=== PATIENT | female | born 1990 | race Caucasian/White ===

== ENCOUNTER 2017-02-08 11:56 | Outpatient (CLI) | payer OTHER ==
[~2017-02-08] VITALS: Ht 160 cm; Wt 112.6 kg
[~2017-02-08 11:56] MED LIST: FERR27TA; PREN-15
[2017-02-08 12:30] VITALS: BP 112/61; PULSE 83; RESP 18; Ht 160 cm; Wt 112.6 kg
[2017-02-08 13:00] LABS: ADD SCAN DIFF NO
[2017-02-08 13:07] LABS: BASOPHILS % 0.1 % (0.0-2.0); EOSINOPHILS # 0.1 10^3/ul (0.0-0.5); EOSINOPHILS % 0.6 % (0.0-7.0); HEMATOCRIT 36.8 % (37.0-47.0); HEMOGLOBIN 11.6 g/dl (12.0-16.0); LYMPHOCYTES # 2.2 10^3/ul (0.8-2.9); LYMPHOCYTES % 15.2 % (15.0-51.0); MEAN CORPUSCULAR HEMOGLOBIN 26.4 pg (29.0-33.0); MEAN CORPUSCULAR HGB CONC 31.5 g/dl (32.0-37.0); MEAN CORPUSCULAR VOLUME 83.8 fl (82.0-101.0); MEAN PLATELET VOLUME 11.5 fl (7.4-10.4); MONOCYTE # 0.9 10^3/ul (0.3-0.9); NEUTROPHIL # 11.1 10^3/ul (1.6-7.5); NEUTROPHILS % 77.8 % (39.0-77.0); PLATELET COUNT 283 10^3/UL (140-415); RED BLOOD COUNT 4.39 10^6/ul (4.20-5.40); RED CELL DISTRIBUTION WIDTH 14.1 % (11.5-14.5); WHITE BLOOD COUNT 14.3 10^3/ul (4.8-10.8)
[2017-02-08 13:10] LABS: ALBUMIN 3.2 g/dl (3.3-4.9); POTASSIUM 4.1 mmol/L (3.5-5.1)
[2017-02-08 13:12] LABS: CREATININE 0.6 mg/dl (0.44-1.00)
[2017-02-08 13:13] LABS: ALBUMIN/GLOBULIN RATIO 0.8; BILIRUBIN,INDIRECT 0.1 mg/dl (0-1.1); BILIRUBIN,TOTAL 0.1 mg/dl (0.2-1.3); TOTAL PROTEIN 7.2 g/dl (6.1-8.1); URIC ACID 5.4 mg/dl (3.1-7.9)
[2017-02-08 13:14] LABS: CALCIUM 9.2 mg/dl (8.4-10.2)
[2017-02-08 13:26] LABS: ADD UMIC YES; URINE BILIRUBIN (Dip) NEGATIVE (NEGATIVE); URINE BLOOD (Dip) NEGATIVE (NEGATIVE); URINE COLOR LT. YELLOW (YELLOW); URINE GLUCOSE (Dip) NEGATIVE (NEGATIVE); URINE KETONES (Dip) NEGATIVE (NEGATIVE); URINE LEUKOCYTE ESTERASE (Dip) 2+ (NEGATIVE); URINE NITRITE (Dip) NEGATIVE (NEGATIVE); URINE TOTAL PROTEIN (Dip) NEGATIVE (NEGATIVE); URINE UROBILINOGEN (Dip) 0.2 E.U./dL (0.1-1.0)
--- NOTE | 2017-02-08 13:28 | RADRPT ---
PROCEDURE: OB ultrasound for biophysical profile CLINICAL INDICATION: Hypertension TECHNIQUE: Multiple sonographic images of the pelvis were obtained. Transabdominal views of the g ravid uterus are available for review. The images were reviewed on a PACS workstation. COMPARISON: None FINDINGS: breathing movement = 2/2 tone = 2/2 motion = 2/2 ROBBIE = 2/2 ROBBIE = 14.7 cm Single live intrauterine with cardiac activity of 125 bpm. position is cephal ic. The placenta is posterior. IMPRESSION: 1. Single live intrauterine gestation. 2. Biophysical profile = 8. 3. ROBBIE = 14.7 cm. RPTAT: HH .Alexandra Mccann MD, MD Date Time Electronically viewed and signed by .Alexandra Mccann MD, on 02/08/2017 13:27 .G/
[2017-02-08 13:55] LABS: SQUAMOUS EPITHELIAL CELL,UR MODERATE; URINE RBCS NONE SEEN /HPF (0)
--- NOTE | 2017-02-08 14:54 | CONS ---
Date/Time of Note Date/Time of Note DATE: 02/08/17 TIME: 14:45 Consultation Date/Type/Reason Admit Date/Time February 08, 2017 OB triage consult Hx of Present Illness This patient is a 26 years old 3 para 2 living 2 who had both of her deliveries by section Her estimated date of confinement is February 25, 2017 which makes her today 37 weeks and 4 days She came to OB triage due to elevated blood pressure in the clinic On general exam she is a well-developed well-nourished lady in no acute She denies any headache blurry vision epigastric pain Her vital signs were normal the blood pressure and several occasion was around 112/61 and again 126/65 and 111/58 . her pulse rate 83 respiration 18 and temperature 91.1 Constitutional: No chills, No diaphoresis, No disoriented, No febrile, No improved, No no complaints, No other, No poor po, No requiring IVF, No requiring O2 Eyes: No discharge, No no complaints, No other, No pain, No redness, No visual change ENT: No bleeding, No congestion, No discharge, No dysphagia, No no complaints, No other, No pain, No sore throat Respiratory: No cough, No no complaints, No other, No pain, No pleuritic pain, No shortness of breath, No sputum, No wheezing Cardiovascular: No chest pain, No edema, No lightheadedness, No no complaints, No orthopenea, No other, No palpitations, No paroxysmal nocturnal dyspnea Genitourinary: other (On pelvic examination her cervix was closed thick and -4 no bleeding no excessive discharge or tenderness), No bleeding, No discharge, No dysuria, No flank pain, No hematuria, No no complaints Musculoskeletal: no complaints, No back pain, No bone/joint pain, No neck pain, No other, No restricted range of motion, No swelling Skin: No bruising, No erythema, No laceration, No no complaints, No other, No pruritis, No rash, No skin lesions Neurologic: No confusion, No dizziness, No focal-weakness, No headache, No no complaints, No other, No seizure, No syncope Endocrine: No dry skin, No no complaints, No other, No polydypsia, No polyuria , No temp intolerance Psychological: No anxiety, No confusion, No depression, No nl mood/affect, No no complaints, No other, No suicidal Immunologic: No immunodeficiency, No no complaints, No other, No pruritis, No rhinitis, No urticaria Additional Comments On the laboratory studies except for 2+ leuco esterase and WBC of 5-10 , the rest of the test on urine was negative her CBC was basically normal except for WBC of 14.3 and hemoglobin 11.6 hematocrit 36.8 , differential count were basically her electrolyte PIH lab liver function tests were all within normal limits Ultrasound study was performed the report was a single live intrauterine with cardiac activity 125 bpm position was cephalic, placenta was posterior. Her biophysical profile was reported 05/31 with ROBBIE of 14.7 cm. W With these finding I ordered a urine culture to be performed and Dr. Parisi recommended to start her on antibiotic. So an order to was given to collect clean-catch urine for culture. She was also placed on Macrobid 100 mg twice daily for 10 days End of dictation thank you Laboratory Tests Test 02/08/17 12:45 02/08/17 13:05 White Blood Count 14.310^3/ul Red Blood Count 4.3910^6/ul Hemoglobin 11.6g/dl Hematocrit 36.8% Mean Corpuscular Volume 83.8fl Mean Corpuscular Hemoglobin 26.4pg Mean Corpuscular Hemoglobin Concent 31.5g/dl Red Cell Distribution Width 14.1% Platelet Count 76935^3/UL Mean Platelet Volume 11.5fl Neutrophils % 77.8% Lymphocytes % 15.2% Monocytes % 6.0% Eosinophils % 0.6% Basophils % 0.1% Nucleated Red Blood Cells % 0.0/100WBC Neutrophils # 11.110^3/ul Lymphocytes # 2.210^3/ul Monocytes # 0.910^3/ul Eosinophils # 0.110^3/ul Basophils # 0.010^3/ul Nucleated Red Blood Cells # 0.010^3/ul Sodium Level 135mmol/L Potassium Level 4.1mmol/L Chloride Level 102mmol/L Carbon Dioxide Level 23mmol/L Anion Gap 14 Blood Urea Nitrogen 7mg/dl Creatinine 0.60mg/dl Glucose Level 76mg/dl Uric Acid 5.4mg/dl Calcium Level 9.2mg/dl Total Bilirubin 0.1mg/dl Direct Bilirubin 0.00mg/dl Indirect Bilirubin 0.1mg/dl Aspartate Amino Transf (AST/SGOT) 15IU/L Alanine Aminotransferase (ALT/SGPT) 24IU/L Alkaline Phosphatase 191IU/L Total Protein 7.2g/dl Albumin 3.2g/dl Globulin 4.00g/dl Albumin/Globulin Ratio 0.80 Urine Color LT. YELLOW Urine Clarity CLEAR Urine pH 6.5 Urine Specific Lopez <=1.005 Urine Ketones NEGATIVE Urine Nitrite NEGATIVE Urine Bilirubin NEGATIVE Urine Urobilinogen 0.2 E.U./dL Urine Leukocyte Esterase 2+ Urine Microscopic RBC NONE SEEN/HPF Urine Microscopic WBC 5-10/HPF Urine Squamous Epithelial Cells MODERATE Urine Hemoglobin NEGATIVE Urine Glucose NEGATIVE% Urine Total Protein NEGATIVE Social History Smoking Status: Never smoker Exam/Review of Systems Vital Signs Vitals Vital Signs Date Time Temp Pulse Resp B/P Pulse Ox O2 Delivery O2 Flow Rate FiO2 02/08/17 12:30 98.1 83 18 112/61 Room Air Results Result Diagram: 02/08/17 1245 02/08/17 1245 Results 24 hrs Laboratory Tests Test 02/08/17 12:45 02/08/17 13:05 White Blood Count 14.3 H Red Blood Count 4.39 Hemoglobin 11.6 L Hematocrit 36.8 L Mean Corpuscular Volume 83.8 Mean Corpuscular Hemoglobin 26.4 L Mean Corpuscular Hemoglobin Concent 31.5 L Red Cell Distribution Width 14.1 Platelet Count 283 Mean Platelet Volume 11.5 H Neutrophils % 77.8 H Lymphocytes % 15.2 Monocytes % 6.0 Eosinophils % 0.6 Basophils % 0.1 Nucleated Red Blood Cells % 0.0 Neutrophils # 11.1 H Lymphocytes # 2.2 Monocytes # 0.9 Eosinophils # 0.1 Basophils # 0.0 Nucleated Red Blood Cells # 0.0 Sodium Level 135 Potassium Level 4.1 Chloride Level 102 Carbon Dioxide Level 23 Anion Gap 14 Blood Urea Nitrogen 7 Creatinine 0.60 Glucose Level 76 Uric Acid 5.4 Calcium Level 9.2 Total Bilirubin 0.1 L Direct Bilirubin 0.00 Indirect Bilirubin 0.1 Aspartate Amino Transf (AST/SGOT) 15 Alanine Aminotransferase (ALT/SGPT) 24 Alkaline Phosphatase 191 H Total Protein 7.2 Albumin 3.2 L Globulin 4.00 H Albumin/Globulin Ratio 0.80 Urine Color LT. YELLOW Urine Clarity CLEAR Urine pH 6.5 Urine Specific Lopez <=1.005 L Urine Ketones NEGATIVE Urine Nitrite NEGATIVE Urine Bilirubin NEGATIVE Urine Urobilinogen 0.2 E.U./dL Urine Leukocyte Esterase 2+ H Urine Microscopic RBC NONE SEEN Urine Microscopic WBC 5-10 Urine Squamous Epithelial Cells MODERATE Urine Hemoglobin NEGATIVE Urine Glucose NEGATIVE Urine Total Protein NEGATIVE MITUL ARTHUR MD Feb 08, 2017 14:54
--- NOTE | 2017-02-08 15:05 | TRIAGE ---
OB Triage Datetime Report Generated by CPN: 02/08/2017 15:05 Datetime: 02/08/2017 14:10 Labor Evaluation Frequency: 1-3 Monitor Mode: External Duration (sec)2399: 40-100 Quality: Mild Pattern: Normal: <= 5 Contractions in 10 Minutes Resting Tone Chama: Relaxed Heart Rate FHR Baseline Rate: 135 Monitor Mode: External US FHR Baseline Changes: No Baseline Change Variability: Moderate 6-25 bpm Accelerations: 15X15 Decelerations: None Category: Category I Pain Assessment Pain Presence: None/Denies Pain Assessment Comments: Pt denies pain or pressure with contractions Datetime: 02/08/2017 14:04 Vaginal Exam Dilatation (cms): 0.0 Effacement (%): 0 Station: -4 Exam By: Jennifer RN Datetime: 02/08/2017 13:09 Labor Evaluation Frequency: OCC Monitor Mode: External Quality: Moderate Pattern: Normal: <= 5 Contractions in 10 Minutes Resting Tone Chama: Relaxed Contraction Comments: Irritability noted Heart Rate FHR Baseline Rate: 130 Monitor Mode: External US FHR Baseline Changes: No Baseline Change Variability: Moderate 6-25 bpm Accelerations: 15X15 Decelerations: None Category: Category I Pain Assessment Pain Presence: None/Denies Pain Assessment Comments: Pt denies feeling pain or pressure with contractions Datetime: 02/08/2017 12:49 Monitor Mode: External Resting Tone Chama: Relaxed Heart Rate FHR Baseline Rate: 125 Monitor Mode: External US FHR Baseline Changes: No Baseline Change Variability: Moderate 6-25 bpm Accelerations: 15X15 Decelerations: None Category: Category I Datetime: 02/08/2017 12:27 Assessment Type: Triage Maternal Assessment Level of Consciousness: Fully Conscious DTR's/Clonus: DTRs 2+; No Clonus Headache: Denies Blurred Vision: No Respiratory Effort: Unlabored; Regular Rhythm; Equal Expansion Breath Sounds, Left: Clear and Equal Breath Sounds, Right: Clear and Equal Nausea/Vomiting: Denies RUQ Epigastric Pain: Denies Lower Extremities Edema: None Degree: None Upper Extremities Edema: None Degree: None Facial Edema: None Fall Risk Assessment History of Falling: (0) No Secondary Diagnosis: (0) No Ambulatory Aid: (0) Bedrest/Nurse Assist IV Therapy: (0) No Gait: (0) Normal/Bedrest/Immobile Mental Status: (0) Oriented to Own Ability Fall Score: 0 Fall Risk Score Definition: No Risk: No action required Datetime: 02/08/2017 12:26 Time of Arrival: 02/08/2017 11:56 EGA: 37.4 Arrived By: Ambulatory Arrived From: Dr. Pineda Chief Complaint: pt sent from clinic for eval. of HBP Movement: Present Contractions: Denies/Absent Rupture of Membranes: Denies Vaginal Bleeding: None Vaginal Discharge: Denies Recent Sexual Intercouse: Denies Abdominal Trauma: Not Applicable Patient Complaints: None Time Provider Notified: 02/08/2017 12:35 Provider Notified: [facility], [facility] Initial Plan: NST/BPP/PIH PANEL Datetime: 02/08/2017 12:24 Monitor Mode: External Monitor Mode: External US Datetime: 02/08/2017 12:18 Stage of : OB Triage
== END 2017-02-08 14:50 | disposition home or self-care (01) ==
LOC: OBT 11:56 → L-D 11:57 → OBT 14:50
PROVIDERS: ATTEND Obstetrics & Gynecology
DX: O26.893 Other specified pregnancy related conditions, third trimester (principal); R03.0 Elevated blood-pressure reading, without diagnosis of hypertension; Z3A.37 37 weeks gestation of pregnancy
CPT/HCPCS: 36415; 76818; 80053; 81001; 84560; 85025; 87086; Z7500; 81003; G0463

== ENCOUNTER 2017-02-18 05:19 | Inpatient (IN) | payer OTHER ==
[~2017-02-18] VITALS: Ht 160 cm; Wt 112.7 kg
[2017-02-18] VITALS (9 sets, daily range): BP systolic 116–138; BP diastolic 59–83; PULSE 57–83; RESP 16–19; Ht 160 cm; Wt 112.7 kg
[2017-02-18] MEDS ORDERED: NITR100C73 PO (05:31)
[2017-02-18] MEDS ORDERED: METHYLERGONOVINE 0.2 MG INJ IM PRN ×2 (06:00→12:30)
[2017-02-18] MEDS ORDERED: OXYTOCIN 30 UNITS/LR 500 ML IV PRN ×2 (06:00→12:30)
[2017-02-18] MEDS ORDERED: CARBOPROST 250 MCG INJ IM PRN ×2 (06:00→12:30)
[2017-02-18] MEDS ORDERED: MISOPROSTOL 200 MCG TAB PR PRN ×2 (06:00→12:30)
[2017-02-18] MEDS ORDERED: OXYTOCIN 30 UNITS/LR 500 ML IV SCH (06:00)
[2017-02-18] MEDS ORDERED: CLINDAMYCIN 900 MG/D5W (PMX) 50 ML IV SCH (06:00)
[2017-02-18 06:07] LABS: ADD SCAN DIFF NO
[2017-02-18 06:24] LABS: BASOPHILS % 0.1 % (0.0-2.0); EOSINOPHILS # 0.1 10^3/ul (0.0-0.5); EOSINOPHILS % 0.4 % (0.0-7.0); HEMATOCRIT 36.8 % (37.0-47.0); HEMOGLOBIN 11.9 g/dl (12.0-16.0); LYMPHOCYTES # 2.3 10^3/ul (0.8-2.9); LYMPHOCYTES % 16.9 % (15.0-51.0); MEAN CORPUSCULAR HEMOGLOBIN 26.9 pg (29.0-33.0); MEAN CORPUSCULAR HGB CONC 32.3 g/dl (32.0-37.0); MEAN CORPUSCULAR VOLUME 83.1 fl (82.0-101.0); MEAN PLATELET VOLUME 11.9 fl (7.4-10.4); MONOCYTE # 0.8 10^3/ul (0.3-0.9); MONOCYTES % 5.7 % (0.0-11.0); NEUTROPHIL # 10.2 10^3/ul (1.6-7.5); NEUTROPHILS % 76.5 % (39.0-77.0); PLATELET COUNT 276 10^3/UL (140-415); RED BLOOD COUNT 4.43 10^6/ul (4.20-5.40); RED CELL DISTRIBUTION WIDTH 14.7 % (11.5-14.5); WHITE BLOOD COUNT 13.4 10^3/ul (4.8-10.8)
[2017-02-18 06:34] LABS: INR 0.98
[2017-02-18] MEDS ORDERED: LACTATED RINGER'S 1,000 ML IV SCH (06:52)
[2017-02-18] MEDS ORDERED: ONDANSETRON 4 MG INJ IV STA (07:26)
[2017-02-18] MEDS ORDERED: CITRIC ACID/NA CITRATE 30 ML CUP ONE (07:28)
[2017-02-18] MEDS ORDERED: ONDANSETRON 4 MG INJ ONE ×2 (07:29→07:32)
[2017-02-18] MEDS ORDERED: CITRIC ACID/SODIUM CITRATE 15 ML CUP PO ONE (07:30)
[2017-02-18] MEDS ORDERED: OXYTOCIN 10 UNIT INJ ONE ×3 (07:32→08:19)
[2017-02-18] MEDS ORDERED: KETOROLAC 30 MG INJ ONE (07:32)
[2017-02-18] MEDS ORDERED: PHENYLephrine (100 MCG/ML) 5ML SYG ONE ×2 (07:32→08:04)
[2017-02-18] MEDS ORDERED: METOCLOPRAMIDE 10 MG INJ ONE (07:32)
[2017-02-18] MEDS ORDERED: morphine SULFATE/PF (10 MG/10 ML) INJ ONE (07:32)
[2017-02-18] MEDS ORDERED: DEXAMETHASONE 4 MG/ML 1 ML INJ ONE (07:32)
[2017-02-18] MEDS ORDERED: NALBUPHINE HCL (10 MG/1 ML) INJ IV PRN (08:30)
[2017-02-18] MEDS ORDERED: NALOXONE (0.4 MG/ML) INJ IV PRN (08:30)
[2017-02-18] MEDS ORDERED: CITRIC ACID/NA CITRATE 30 ML CUP PO ONE (08:30)
[2017-02-18] MEDS ORDERED: morphine 2 MG INJ IV PRN (08:30)
[2017-02-18] MEDS ORDERED: ONDANSETRON 4 MG INJ IV ONE (08:30)
[2017-02-18] MEDS ORDERED: morphine 4 MG/ML VIAL IV PRN (08:30)
[2017-02-18] MEDS ORDERED: ACETAMINOPHEN 500 MG TAB PO PRN (08:30)
[2017-02-18] MEDS ORDERED: DIPHENHYDRAMINE 50 MG INJ IV PRN (08:30)
[2017-02-18] MEDS ORDERED: HYDROCODONE/APAP (5/325) TAB PO PRN (08:30)
[2017-02-18] MEDS ORDERED: HYDROmorphONE 1 MG/ML SYG IV PRN ×2 (08:30)
[2017-02-18] MEDS ORDERED: ONDANSETRON 4 MG INJ IV PRN (08:30)
--- NOTE | 2017-02-18 09:04 | HP ---
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12 history of 2 previous pregnancies with section denies hospitalization for any other surgical or medical condition Allergies denies allergy to any known medication Social habit denies smoking or drink Family history unremarkable Review of system within normal Physical examination 5 feet 3 248 pounds temperature 98 pulse 72 respiration 18 blood pressure 121/64 Head ears nose and throat negative Neck supple no thyromegaly Lungs clear to P&A Heart normal sinus rhythm no murmur Abdomen fundal height 37 cm from symphysis pubis to the height of the fundus heart rate category 1 Pelvic examination deferred Extremities no edema no varicosities Impression intrauterine at 39 weeks gestation history of 2 previous section. Patient was counseled regarding the complication of the surgery including bowel bladder injury infection hemorrhage and hematoma and she would like to proceed with the operation. Past Family/Social History * Past Medical, Surgical, Family and Obstetric Histories reviewed from chart. OB Admission Exam Vital Signs Vital Signs Vital Signs Date Time Temp Pulse Resp B/P Pulse Ox O2 Delivery O2 Flow Rate FiO2 02/18/17 06:51 98.0 83 18 123/73 Room Air Physical Exam HEENT: WNL Heart: Rhythm Normal Lungs: Clear, Equal Abdomen: WNL Extremities: Normal Reflexes: Normal Effacement: 0% Membranes: Intact Heart Rate: 130's Accelerations: Accelerations Present Decelerations: No Decelerations Last 72 hours Lab Results CBC & BMP 02/18/17 05:55 OB Assessment/Plan Reason for admission: other (Repeat section for the third time) Plan: Other (Repeat section for the third time) ANN CATALAN MD Feb 18, 2017 09:03
--- NOTE | 2017-02-18 10:23 | OPR ---
DATE OF OPERATION: 02/18/2017 PREOPERATIVE DIAGNOSES: 1. Intrauterine at 39 weeks' gestation. 2. History of 2 previous sections. POSTOPERATIVE DIAGNOSES 1. Intrauterine at 39 weeks' gestation. 2. History of 2 previous sections. ANESTHESIA: Spinal. ANESTHESIOLOGIST: Jessica Prescott MD PROCEDURE: Repeat transverse low cervical section. SURGEON: Ann Parisi MD ICE CREAM SCOOPER: Emerson Cutler MD ANESTHESIA: Spinal. ANESTHESIOLOGISTS: Tim Prescott MD FINDINGS: Live baby girl, Apgars 9 and 9. DETAILS OF THE PROCEDURE: Under satisfactory spinal anesthesia, the patient was prepped and draped and placed in supine position, tilted to the left. Pfannenstiel incision was made, carried through the subcutaneous tissue. Bleeders brought under control with electrocautery. Fascia incised to the length of the incision. Rectus muscle divided in midline. Peritoneum exposed, entered through a t ransverse incision. Exploration of abdomen. Gravid uterus with normal appearing tubes and ovaries and extremely thinned out lower segment of the uterus and presence of a window approximately 4 x 4 c m. Bladder flap was developed. Transverse incision was made in the lower segment of the uterus. A mniotic sac ruptured. Clear amniotic fluid noted. Live baby girl was delivered from unengaged vert ex with a nuchal cord tight around the baby's neck x3 times. Nasal oropharyngeal suction was perfor med. Cord clamped after stop pulsation. The patient received 20 units of Pitocin. Placenta delive red manually intact. Uterine cavity cleaned with wet sponge and drainage established. Uterus close d in 2 layers using Monocryl #1 in continuous fashion. Peritoneal cavity irrigated with warm saline . Sponge, needle and instrument reported to be correct. Abdominal peritoneum closed with 2-0 chrom ic catgut continuously. Rectus muscle approximated with two interrupted 2-0 chromic catgut. Fascia closed with #1 PDS in a continuous fashion. Subcutaneous tissue approximated with 2-0 chromic catg ut and the skin closed with taye. Estimated blood loss 600 mL. Urine bag contained 200 mL of cl ear urine. Patient tolerated procedure well, transferred to recovery room in a good condition. Dictated By: ANN PARISI MD HF/NTS Conf#: [id number] DID#: [id number] CC: EMERSON CUTLER MD;*[facility]*
[2017-02-18] MEDS ORDERED: LANOLIN 7 GM TUBE TOP PRN (12:30)
[2017-02-18] MEDS ORDERED: ACETAMINOPHEN/CODEINE #3 TAB PO PRN ×2 (12:30)
[2017-02-18] MEDS ORDERED: CEFAZOLIN 1 GM/50 ML (PMX) 50 ML IVPB SCH (12:30)
[2017-02-18] MEDS ORDERED: OXYCODONE/ACETAMINOPHEN (5/325) TAB PO PRN ×2 (12:30)
[2017-02-18] MEDS: OXYTOCIN 30 UNITS/LR 500 ML IV SCH ×4 (14:38→23:54)
[2017-02-18] MEDS ORDERED: CLINDAMYCIN 900 MG/D5W (PMX) 50 ML IVPB SCH (15:30)
[2017-02-18] MEDS: KETOROLAC 30 MG INJ IV PRN (20:10)
[2017-02-18] MEDS: SENNA/DOCUSATE NA (8.6MG/50MG) TAB PO SCH (20:10)
[2017-02-19] VITALS: BP 132/80; PULSE 71; RESP 18
[2017-02-19] MEDS ORDERED: LACTATED RINGER'S 1,000 ML IV ONE (03:30)
[2017-02-19] MEDS: KETOROLAC 30 MG INJ IV PRN (03:32)
[2017-02-19 03:59] VITALS: BP 113/73; PULSE 71; RESP 19
[2017-02-19] MEDS: OXYTOCIN 30 UNITS/LR 500 ML IV SCH ×3 (04:27→12:08)
[2017-02-19 07:36] LABS: ADD SCAN DIFF NO
[2017-02-19 07:39] LABS: BASOPHILS % 0.2 % (0.0-2.0); EOSINOPHILS % 0.3 % (0.0-7.0); HEMATOCRIT 27.6 % (37.0-47.0); HEMOGLOBIN 9.2 g/dl (12.0-16.0); LYMPHOCYTES # 2.9 10^3/ul (0.8-2.9); LYMPHOCYTES % 19.1 % (15.0-51.0); MEAN CORPUSCULAR HEMOGLOBIN 27.5 pg (29.0-33.0); MEAN CORPUSCULAR HGB CONC 33.3 g/dl (32.0-37.0); MEAN CORPUSCULAR VOLUME 82.4 fl (82.0-101.0); MEAN PLATELET VOLUME 11.7 fl (7.4-10.4); MONOCYTES % 6.8 % (0.0-11.0); NEUTROPHIL # 11.3 10^3/ul (1.6-7.5); NEUTROPHILS % 73.2 % (39.0-77.0); PLATELET COUNT 212 10^3/UL (140-415); RED BLOOD COUNT 3.35 10^6/ul (4.20-5.40); RED CELL DISTRIBUTION WIDTH 14.5 % (11.5-14.5); WHITE BLOOD COUNT 15.4 10^3/ul (4.8-10.8)
[2017-02-19 08:15] VITALS: BP 102/54; PULSE 60; RESP 17
[2017-02-19] MEDS: SENNA/DOCUSATE NA (8.6MG/50MG) TAB PO SCH ×2 (09:25→21:20)
--- NOTE | 2017-02-19 10:04 | PN ---
Date/Time of Note Date/Time of Note DATE: 02/19/17 TIME: 10:03 OB Subjective Subjective Subjective Post day 1 Afebrile vital signs stable abdomen soft mildly distended bowel sounds present lochia moderate incision dry extremity normal ambulation recommended diet advanced as tolerated Laboratory Tests Test 02/19/17 06:50 White Blood Count 15.410^3/ul Red Blood Count 3.3510^6/ul Hemoglobin 9.2g/dl Hematocrit 27.6% Mean Corpuscular Volume 82.4fl Mean Corpuscular Hemoglobin 27.5pg Mean Corpuscular Hemoglobin Concent 33.3g/dl Red Cell Distribution Width 14.5% Platelet Count 18977^3/UL Mean Platelet Volume 11.7fl Neutrophils % 73.2% Lymphocytes % 19.1% Monocytes % 6.8% Eosinophils % 0.3% Basophils % 0.2% Nucleated Red Blood Cells % 0.0/100WBC Neutrophils # 11.310^3/ul Lymphocytes # 2.910^3/ul Monocytes # 1.010^3/ul Eosinophils # 0.010^3/ul Basophils # 0.010^3/ul Nucleated Red Blood Cells # 0.010^3/ul Current Medications Medications (Trade) Dose Ordered Sig/Billy Route PRN Reason Start Time Stop Time Status Last Admin Dose Admin Clindamycin HCl/ Dextrose 50 ml @ 50 mls/hr ONCE IV 02/18/17 06:00 02/18/17 12:30 DC Oxytocin/Lactated Ringer's 500 ml @ 125 mls/hr ONCE IV 02/18/17 06:00 02/18/17 12:30 DC Oxytocin/Lactated Ringer's 500 ml @ 0 mls/hr ONCE PRN IV For Hemorrhage Management 02/18/17 06:00 02/18/17 12:30 DC Methylergonovine Maleate (Methergine) 0.2 mg ONCE PRN IM VAGINAL BLEEDING 02/18/17 06:00 02/18/17 12:30 DC Carboprost Tromethamine (Hemabate) 250 mcg ONCE PRN IM VAGINAL BLEEDING 02/18/17 06:00 Misoprostol 1000 mcg 1,000 mcg ONCE PRN ND VAGINAL BLEEDING 02/18/17 06:00 02/18/17 12:30 DC Lactated Ringer's (Lr) 1,000 ml @ 125 mls/hr Q8H IV 02/18/17 06:52 02/18/17 12:30 DC 02/18/17 07:12 Citric Acid/ Sodium Citrate (Bicitra) 30 ml ONCE ONCE PO 02/18/17 07:30 02/18/17 07:31 DC Ondansetron HCl (Zofran Inj) 4 mg ONCE STAT IV 02/18/17 07:26 02/18/17 07:31 DC 02/18/17 09:46 Citric Acid/ Sodium Citrate (Bicitra) 30 ml STK-MED ONCE .ROUTE 02/18/17 07:28 02/18/17 07:29 DC Ondansetron HCl (Zofran Inj) 4 mg STK-MED ONCE .ROUTE 02/18/17 07:29 02/18/17 07:30 DC Morphine Sulfate (Duramorph) 10 mg STK-MED ONCE .ROUTE 02/18/17 07:32 02/18/17 07:33 DC Ondansetron HCl (Zofran Inj) 4 mg STK-MED ONCE .ROUTE 02/18/17 07:32 02/18/17 07:33 DC Phenylephrine HCl (Ministerio-Synephrine Inj Syg) 500 mcg STK-MED ONCE .ROUTE 02/18/17 07:32 02/18/17 07:33 DC Metoclopramide HCl (Reglan) 10 mg STK-MED ONCE .ROUTE 02/18/17 07:32 02/18/17 07:33 DC Oxytocin (Oxytocin) 10 units STK-MED ONCE .ROUTE 02/18/17 07:32 02/18/17 07:33 DC Oxytocin (Oxytocin) 10 units STK-MED ONCE .ROUTE 02/18/17 07:32 02/18/17 07:33 DC Ketorolac Tromethamine (Toradol) 30 mg STK-MED ONCE .ROUTE 02/18/17 07:32 02/18/17 07:33 DC Dexamethasone (Decadron) 4 mg STK-MED ONCE .ROUTE 02/18/17 07:32 02/18/17 07:33 DC Phenylephrine HCl (Ministerio-Synephrine Inj Syg) 500 mcg STK-MED ONCE .ROUTE 02/18/17 08:04 02/18/17 08:05 DC Hydromorphone HCl (Dilaudid) 0.2 mg Q2H PRN IV PAIN LEVEL 1-5 02/18/17 08:30 02/19/17 07:34 DC Hydromorphone HCl (Dilaudid) 0.4 mg Q2H PRN IV PAIN LEVEL 6-10 02/18/17 08:30 02/19/17 07:34 DC Morphine Sulfate (morphine) 2 mg Q2H PRN IV PAIN LEVEL 1-5 02/18/17 08:30 02/18/17 12:30 DC Morphine Sulfate (morphine) 4 mg Q2H PRN IV PAIN LEVEL 6-10 02/18/17 08:30 02/18/17 12:30 DC Ketorolac Tromethamine (Toradol) 30 mg Q6H PRN IV PAIN LEVEL 6-10 02/18/17 08:30 02/19/17 07:34 DC 02/19/17 03:32 Acetaminophen (Tylenol Tab) 500 mg Q4H PRN PO PAIN LEVEL 1-3 02/18/17 08:30 02/18/17 12:30 DC Acetaminophen/ Hydrocodone Bitart (Bison (5/325)) 1 tab Q4H PRN PO PAIN LEVEL 4-6 02/18/17 08:30 02/18/17 12:30 DC Diphenhydramine HCl (Benadryl) 25 mg Q4H PRN IV PRURITUS 02/18/17 08:30 02/18/17 12:30 DC Nalbuphine HCl (Nubain) 10 mg Q4H PRN IV PRURITUS 02/18/17 08:30 02/18/17 12:30 DC Ondansetron HCl (Zofran Inj) 4 mg Q6H PRN IV NAUSEA AND/OR VOMITING 02/18/17 08:30 02/19/17 07:34 DC Naloxone HCl (Narcan) 0.2 mg Q2M PRN IV FOR RESP RATE 8 OR LESS 02/18/17 08:30 02/19/17 07:34 DC Miscellaneous Information (* Miscellaneous Pharmacy Order) DURAMORPH: 0.2 MG SPI... GIVEN NEURAXIAL XX 02/18/17 08:30 02/18/17 12:30 DC Ondansetron HCl (Zofran Inj) 4 mg pre-procedure ONCE IV 02/18/17 08:30 02/18/17 08:31 DC Citric Acid/ Sodium Citrate (Bicitra) 30 ml pre-procedure ONCE PO 02/18/17 08:30 02/18/17 08:31 DC 02/18/17 09:45 Oxytocin (Oxytocin) 10 units STK-MED ONCE .ROUTE 02/18/17 08:19 02/18/17 08:20 DC Acetaminophen/ Codeine Phosphate (Tylenol No.3) 1 tab Q4H PRN PO PAIN LEVEL 4-6 02/18/17 12:30 Acetaminophen/ Codeine Phosphate (Tylenol No.3) 2 tab Q4H PRN PO PAIN LEVEL 7-10 02/18/17 12:30 Oxycodone/ Acetaminophen (Percocet (5/ 325)) 1 tab Q4H PRN PO PAIN LEVEL 4-6 02/18/17 12:30 Oxycodone/ Acetaminophen (Percocet (5/ 325)) 2 tab Q4H PRN PO PAIN LEVEL 7-10 02/18/17 12:30 Ibuprofen (Motrin) 600 mg Q6 PO 02/19/17 12:00 Simethicone (Mylicon) 160 mg Q8H PRN PO DISTENSION/GAS/BLOATING 02/18/17 12:30 Senna/Docusate Sodium (Senokot-S) 1 tab BID PO 02/18/17 21:00 02/19/17 09:25 Lanolin (Qvx-R-Vkoufh) 1 applic BEDSIDE MEDICATION PRN TOP BEDSIDE FOR MARTHA TO NIPPLES 02/18/17 12:30 Diphtheria/ Tetanus/Acell Pertussis 0.5 ml 0.5 ml ONCE ONCE IM* 02/21/17 09:00 02/21/17 09:01 Oxytocin/Lactated Ringer's 500 ml @ 0 mls/hr ONCE PRN IV For Hemorrhage Management 02/18/17 12:30 Methylergonovine Maleate (Methergine) 0.2 mg ONCE PRN IM VAGINAL BLEEDING 02/18/17 12:30 Carboprost Tromethamine (Hemabate) 250 mcg ONCE PRN IM VAGINAL BLEEDING 02/18/17 12:30 Misoprostol 1000 mcg 1,000 mcg ONCE PRN ND VAGINAL BLEEDING 02/18/17 12:30 Cefazolin Sodium 50 ml @ 100 mls/hr ONCE IVPB 02/18/17 12:30 02/18/17 12:59 DC Oxytocin/Lactated Ringer's 500 ml @ 125 mls/hr Q4H IV 02/18/17 12:27 02/18/17 23:54 Clindamycin HCl/ Dextrose 50 ml @ 50 mls/hr ONCE IVPB 02/18/17 15:30 02/18/17 16:29 DC 02/18/17 16:20 Lactated Ringer's (Lr) 1,000 ml @ 125 mls/hr Q8H ONCE IV 02/19/17 03:30 02/19/17 11:29 02/19/17 03:54 ANN CATALAN MD Feb 19, 2017 10:04
[2017-02-19] MEDS: IBUPROFEN 600 MG TAB PO SCH ×3 (12:07→23:59)
[2017-02-19 16:15] VITALS: BP 114/62; PULSE 77; RESP 18
[2017-02-19 19:20] VITALS: BP 127/71; PULSE 63; RESP 18
[2017-02-20 04:00] VITALS: BP 107/55; PULSE 62; RESP 18
[2017-02-20] MEDS: IBUPROFEN 600 MG TAB PO SCH ×4 (05:38→23:35)
[2017-02-20 07:45] VITALS: BP 127/83; PULSE 83; RESP 18
[2017-02-20] MEDS: SENNA/DOCUSATE NA (8.6MG/50MG) TAB PO SCH ×2 (10:00→21:47)
[2017-02-20] MEDS ORDERED: NA PHOSPHATE/BIPHOS 133 ML ENEMA PR ONE (15:30)
--- NOTE | 2017-02-20 15:54 | PN ---
Date/Time of Note Date/Time of Note DATE: 02/20/17 TIME: 15:52 OB Subjective Subjective Subjective Post day 2 Afebrile vital signs stable abdomen soft incision dry uterus firm lochia moderate bowel sounds present no bowel movement fleets enema recommended OB Assessment/Plan Plan: Expectant Management ANN CATALAN MD Feb 20, 2017 15:54
[2017-02-20 16:00] VITALS: BP 121/76; PULSE 74; RESP 18
[2017-02-20 19:40] VITALS: BP 121/58; PULSE 77; RESP 18
[2017-02-21 04:00] VITALS: BP 130/79; PULSE 67; RESP 18
[2017-02-21] MEDS: IBUPROFEN 600 MG TAB PO SCH ×2 (05:45→11:55)
[2017-02-21 08:15] VITALS: BP 136/67; PULSE 84; RESP 18
[2017-02-21] MEDS ORDERED: DIPHTH/TET/ACEL PERTUSS (ADULT) 0.5 ML VIAL IM* ONE (09:00)
[2017-02-21] MEDS: SENNA/DOCUSATE NA (8.6MG/50MG) TAB PO SCH (10:05)
--- NOTE | 2017-02-21 10:18 | PD.PPDC ---
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 Condition Patient Condition: Good Diet Diet: Resume Regular Diet Activity/Restrictions Activity: Normal Activity May Shower Restrictions: No Exercising No Lifting No Driving No Sexual Activity Nothing in the Vagina No [place] No Tampons, douche Wound/Drain Care Instructions Wound/Drain Care Instructions: Remove Steri Strips in 1 week Follow-up Follow-up with Physician: 4, Day/Days Provider Information: Appointment clinic in 4 days to discontinue taye Return to clinic for RN INFUSION Instructions: Fever greater than 101 Worsening abdominal pain Excessive Vaginal Bleeding Unable to tolerate diet OB Instructions: Breast Tenderness Depression Blurried Vision Headache Surgical Instructions: Incisional Drainage Incisional Redness ANN CATALAN MD February 21, 2017 10:18
--- NOTE | 2017-02-21 10:21 | DS ---
Date/Time of Note Date/Time of Note DATE: 02/21/17 TIME: 10:19 Obstetrical Discharge Record Final Diagnosis Final Diagnosis: Term delivered Section Section: Repeat Condition on Discharge Physical Assessment Last Vitals: Vital signs afebrile abdomen is incision healing well patient had normal bowel movement extremities normal recommended appointment to the office in 4 days for follow-up to discontinue taye Voiding: Yes Bowel Movement: Yes Breast: Soft, non-tender, Filling Fundus: Firm Abdomen and Incision: Incision healing well dry free of inflammation Calf Tenderness: No Patient Condition: Good ANN CATALAN MD February 21, 2017 10:21
== END 2017-02-21 13:45 | disposition home or self-care (01) | DRG 766 ==
LOC: L-D 05:19 → PP1 12:01
PROVIDERS: ADMIT Obstetrics & Gynecology; ATTEND Obstetrics & Gynecology
PROC: 10D00Z1 Extraction of Products of Conception, Low, Open Approach (ICD-10-PCS; principal; 2017-02-18 07:30)
DX: O34.211 Maternal care for low transverse scar from previous cesarean delivery (principal); Z37.0 Single live birth; Z3A.39 39 weeks gestation of pregnancy
CPT/HCPCS: 85025; 85610; 85730; 86592; 86850; 86900; 86901; 87340; 90715; 94760; 99464; J1100; J1885; J2274; J2370; J2405; J2590; J2765; J7120

== ENCOUNTER 2017-03-07 00:07 | Emergency (ER) | payer OTHER ==
[~2017-03-07] VITALS: Ht 160 cm; Wt 109.5 kg
[2017-03-07 00:11] VITALS: Ht 160 cm; Wt 109.5 kg
--- NOTE | 2017-03-07 02:02 | ERD ---
ER Documentation Chief Complaint Date/Time DATE: 03/07/17 TIME: 01:58 Chief Complaint redness, lump right side of incision, 2 wks ago HPI 26-year-old female presents here in emergency department for complaints of a lump on the right side of the incision site, patient had a done 2 weeks ago, oozing some serosanguineous fluid coming from the section. Patient noted some lump on the right side and some serosanguineous discharge coming from the area, throbbing pain, 8/10 scale, is worse upon touching the area. Patient did not take any medications to help with symptoms. Patient denies any fever or chills. ROS All systems reviewed and are negative except as per history of present illness. Medications Home Meds Active Scripts Ibuprofen* (Motrin*) 600 Mg Tab, 600 MG PO Q6H Y for PAIN AND OR ELEVATED TEMP, #30 TAB Prov:KEVIN FIELDS NP 03/07/17 Nitrofurantoin Monohyd Macrocr* (Macrobid*) 100 Mg Capsr, 100 MG PO BID for 7 Days, CAP Prov:KEVIN FIELDS NP 03/07/17 Clindamycin Hcl* (Clindamycin Hcl*) 300 Mg Capsule, 300 MG PO TID for 10 Days, CAP Prov:KEVIN FIELDS SEAM CHECKER 03/07/17 Reported Medications Ferrous Sulfate (Iron) 1 Tab Tablet 08/12/10 Vit/Fe Fumarate/Fa (Prenafirst Tablet) 1 Tab Tablet 08/12/10 Allergies Allergies: Coded Allergies: Penicillins (Verified Allergy, Mild, 02/18/17) PMhx/Soc Medical and Surgical Hx: pt denies Medical Hx History of Surgery: Yes (c sec 2 weeks ago) Anesthesia Reaction: No Hx Neurological Disorder: No Hx Respiratory Disorders: No Hx Cardiac Disorders: No Hx Psychiatric Problems: No Hx Miscellaneous Medical Probl: No Hx Alcohol Use: No Hx Substance Use: No Hx Tobacco Use: No Smoking Status: Never smoker FmHx Family History: No coronary disease, No diabetes, No other Physical Exam Vitals Vital Signs Date Time Temp Pulse Resp B/P Pulse Ox O2 Delivery O2 Flow Rate FiO2 03/07/17 00:11 98.1 80 16 177/90 98 Physical Exam GENERAL: The patient is well developed and appropriate for usual state of health, in no apparent distress. CHEST: Clear to auscultation bilaterally. There are no rales, wheezes or rhonchi. HEART: Regular rate and rhythm. No murmurs, clicks, rubs or gallops. No S3 or S4. ABDOMEN: Soft, nontender and nondistended. Good bowel sounds. No rebound or guarding. No gross peritonitis. No gross organomegaly or masses. No Esqueda sign or McBurney point tenderness. BACK: No midline or flank tenderness. EXTREMITIES: Equal pulses bilaterally. There is no peripheral clubbing, cyanosis or edema. No focal swelling or erythema. Full range of motion. Grossly neurovascularly intact. NEURO: Alert and oriented. Cranial nerves 2-12 intact. Motor strength in all 4 extremities with 5/5 strength. Sensation grossly intact. Normal speech and gait. SKIN: Noted incision site in the lower abdominal area to be mildly erythematous , the right side has some tenderness on palpation and some serosanguineous discharge oozing from affected area, there is also an opening of incision area on the left side of the incision wound. There is no apparent ecchymosis or petechia. The skin is warm and dry. HEMATOLOGIC AND LYMPHATIC: There is no evidence of excessive bruising or lymphedema. No gross cervical, axillary, or inguinal lymphadenopathy. Result Diagram: 03/07/1721403/07/17 021 Results 24 hrs Laboratory Tests Test 03/07/17 02:00 03/07/17 02:15 Urine Color LT. YELLOW Urine Clarity CLEAR Urine pH 6.0 Urine Specific Marsing <=1.005 Urine Ketones NEGATIVE Urine Nitrite NEGATIVE Urine Bilirubin NEGATIVE Urine Urobilinogen 0.2 E.U./dL Urine Leukocyte Esterase 2+ Urine Microscopic RBC 2-5/HPF Urine Microscopic WBC 10-25/HPF Urine Squamous Epithelial Cells MODERATE Urine Bacteria MODERATE Urine Hemoglobin TRACE Urine Glucose NEGATIVE% Urine Total Protein NEGATIVE White Blood Count 19.110^3/ul Red Blood Count 4.5910^6/ul Hemoglobin 11.9g/dl Hematocrit 38.4% Mean Corpuscular Volume 83.7fl Mean Corpuscular Hemoglobin 25.9pg Mean Corpuscular Hemoglobin Concent 31.0g/dl Red Cell Distribution Width 14.6% Platelet Count 83865^3/UL Mean Platelet Volume 11.1fl Neutrophils % 80.1% Lymphocytes % 13.2% Monocytes % 4.9% Eosinophils % 1.2% Basophils % 0.2% Nucleated Red Blood Cells % 0.0/100WBC Neutrophils # 15.310^3/ul Lymphocytes # 2.510^3/ul Monocytes # 0.910^3/ul Eosinophils # 0.210^3/ul Basophils # 0.010^3/ul Nucleated Red Blood Cells # 0.010^3/ul Sodium Level 142mmol/L Potassium Level 3.9mmol/L Chloride Level 101mmol/L Carbon Dioxide Level 26mmol/L Anion Gap 19 Blood Urea Nitrogen 13mg/dl Creatinine 0.65mg/dl Glucose Level 88mg/dl Calcium Level 9.8mg/dl Total Bilirubin 0.2mg/dl Direct Bilirubin 0.00mg/dl Indirect Bilirubin 0.2mg/dl Aspartate Amino Transf (AST/SGOT) 21IU/L Alanine Aminotransferase (ALT/SGPT) 28IU/L Alkaline Phosphatase 151IU/L Total Protein 8.8g/dl Albumin 4.0g/dl Globulin 4.80g/dl Albumin/Globulin Ratio 0.83 Lipase 73U/L Current Medications Medications (Trade) Dose Ordered Sig/Billy Route PRN Reason Start Time Stop Time Status Last Admin Dose Admin IV Flush 10 ml 10 ml STK-MED ONCE .ROUTE 03/07/17 03:49 03/07/17 03:50 DC 03/07/17 04:01 Sodium Chloride (NS) 100 ml @ ud STK-MED ONCE .ROUTE 03/07/17 03:49 03/07/17 03:50 DC 03/07/17 04:01 Iohexol 150 ml 150 ml STK-MED ONCE .ROUTE 03/07/17 03:49 03/07/17 03:50 DC 03/07/17 04:01 Clindamycin HCl/ Dextrose (Cleocin 600 Mg/ D5W (Pmx)) 50 ml @ 50 mls/hr ONCE IVPB 03/07/17 05:00 03/07/17 05:59 PROCEDURE: CT ABDOMEN/PELVIS WITH CONTRAST CLINICAL INDICATION: 26-year-old female with abdominal pain. TECHNIQUE: The study was performed utilizing a [employer] 64-slice CT scanner. Direct axial sections were obtained through the abdomen and pelvis with the use of 100 cc of Omnipaque-300 nonionic intravenous contrast material. Sagittal and coronal reformations were obtained. One or more of the following dose reduction techniques were utilized: automated exposure control, adjustment of the mA and/or kV according to patient's size or use of iterative reconstruction technique. The images were reviewed on a PACS workstation. CTD/ vol = 22.9 mGy; Total Exam DLP = 1392.2 mGy-cm. COMPARISON: None. FINDINGS: There is trace left basilar subsegmental atelectasis. There is no evidence for significant pleural effusion. The liver has a normal size and contour without focal areas of abnormal density or contrast enhancement. No intrahepatic nor extrahepatic biliary ductal dilatation is seen. Surgical clips are present within the gallbladder fossa from prior cholecystectomy. The pancreas is without areas of abnormal attenuation or contrast enhancement. This spleen is identified and has a normal size without abnormal density or contrast enhancement. The adrenal glands are unremarkable. The kidneys are functional bilaterally with mild prominence of the renal collecting system bilaterally somewhat more prominently on the left side but without evidence for nephroureterolithiasis. There is a duplicated left renal collecting system. The urinary bladder is distended with urine. The uterus has a elongated appearance and is displaced into the left lower quadrant region. There is a hypodense focus within the ventral aspect of the uterus most likely from section. There is a incisional scar within the lower ventral pelvic wall. There is mild retained stool within the colon without obstruction. The appendix is fluid- filled but without edema or surrounding inflammatory reaction. There is trace free fluid within the right lower quadrant. The aortoiliac vessels are without aneurysmal dilatation. The osseous structures are intact. IMPRESSION: 1. Status post cholecystectomy. 2. Prominent renal collecting systems most likely secondary to a distended bladder and compression from the elongated uterus in the left lower quadrant. 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 3. Mild retained stool without obstruction. 4. No CT evidence for appendicitis. 5. Trace right lower quadrant free fluid. .Uvaldo Shaw MD, Date Time Electronically viewed and signed by .Uvaldo Shaw MD, MD on 03/07/2017 04:36 .M/ CC: KEVIN FIELDS NP Procedures/MDM Medical Decision Making: Patient's wound most likely is infected, has possible cellulitis of affected area. His discussion with my attending physician, Dr. Castro, patient was given IV clindamycin here in emergency department will be sent home with oral clindamycin. Patient also has urinary tract infection which was likely causing elevated white count.. No symptoms of pyelonephritis. No abscesses noted. There is low suspicion for abdominal emergencies at this time. Patients abdominal exam is normal at this time. Patients radiology exam does not show any abdominal emergencies at this time. There is low suspicion for appendicitis, cholecystitis, abdominal aortic aneurysms or peritonitis at this time. There is low suspicion for sepsis. Patient appears well and is hemodynamically stable. Disposition: Home. Condition: Stable Prescription clindamycin, Macrobid, ibuprofen Instructions: Patient is advised to take medications as prescribed. Patient is advised to rest, increase fluid intake and do wound care on affected area, air dry affected area. Patient is advised that if symptoms are worse, severe abdominal pain, uncontrolled vomiting, high fever, severe flank pain, worst signs and symptoms, to return to the emergency department immediately. Otherwise, patient can follow up with primary care doctor in 5-7 days. Departure Diagnosis: Primary Impression: Cellulitis Site of cellulitis: unspecified site Qualified Code: L03.90 - Cellulitis, unspecified cellulitis site Additional Impression: UTI (urinary tract infection) Urinary tract infection type: acute cystitis Hematuria presence: without hematuria Qualified Code: N30.00 - Acute cystitis without hematuria Condition: Stable Patient Instructions: Cellulitis, Understanding Urinary Tract Infections (UTIs) Additional Instructions: Patient is advised to take medications as prescribed. Patient is advised to rest , increase fluid intake and do wound care on affected area, air dry affected area. Patient is advised that if symptoms are worse, severe abdominal pain, uncontrolled vomiting, high fever, severe flank pain, worst signs and symptoms, to return to the emergency department immediately. Otherwise, patient can follow up with primary care doctor in 5-7 days. KEVIN FIELDS NP March 07, 2017 02:02
[2017-03-07 03:00] LABS: ADD SCAN DIFF NO
[2017-03-07 03:04] LABS: BASOPHILS % 0.2 % (0.0-2.0); EOSINOPHILS # 0.2 10^3/ul (0.0-0.5); EOSINOPHILS % 1.2 % (0.0-7.0); HEMATOCRIT 38.4 % (37.0-47.0); HEMOGLOBIN 11.9 g/dl (12.0-16.0); LYMPHOCYTES # 2.5 10^3/ul (0.8-2.9); LYMPHOCYTES % 13.2 % (15.0-51.0); MEAN CORPUSCULAR HEMOGLOBIN 25.9 pg (29.0-33.0); MEAN CORPUSCULAR VOLUME 83.7 fl (82.0-101.0); MEAN PLATELET VOLUME 11.1 fl (7.4-10.4); MONOCYTE # 0.9 10^3/ul (0.3-0.9); MONOCYTES % 4.9 % (0.0-11.0); NEUTROPHIL # 15.3 10^3/ul (1.6-7.5); NEUTROPHILS % 80.1 % (39.0-77.0); PLATELET COUNT 382 10^3/UL (140-415); RED BLOOD COUNT 4.59 10^6/ul (4.20-5.40); RED CELL DISTRIBUTION WIDTH 14.6 % (11.5-14.5); WHITE BLOOD COUNT 19.1 10^3/ul (4.8-10.8)
[2017-03-07 03:05] LABS: ADD UMIC YES; URINE BILIRUBIN (Dip) NEGATIVE (NEGATIVE); URINE BLOOD (Dip) TRACE (NEGATIVE); URINE COLOR LT. YELLOW (YELLOW); URINE GLUCOSE (Dip) NEGATIVE (NEGATIVE); URINE KETONES (Dip) NEGATIVE (NEGATIVE); URINE LEUKOCYTE ESTERASE (Dip) 2+ (NEGATIVE); URINE NITRITE (Dip) NEGATIVE (NEGATIVE); URINE TOTAL PROTEIN (Dip) NEGATIVE (NEGATIVE); URINE UROBILINOGEN (Dip) 0.2 E.U./dL (0.1-1.0)
[2017-03-07 03:16] LABS: BACTERIA,URINE MODERATE; SQUAMOUS EPITHELIAL CELL,UR MODERATE
[2017-03-07 03:22] LABS: POTASSIUM 3.9 mmol/L (3.5-5.1)
[2017-03-07 03:25] LABS: ALBUMIN/GLOBULIN RATIO 0.83; BILIRUBIN,INDIRECT 0.2 mg/dl (0-1.1); BILIRUBIN,TOTAL 0.2 mg/dl (0.2-1.3); CALCIUM 9.8 mg/dl (8.4-10.2); CREATININE 0.65 mg/dl (0.44-1.00); TOTAL PROTEIN 8.8 g/dl (6.1-8.1)
[2017-03-07] MEDS ORDERED: SOD CHLORIDE 0.9% 100 ML ONE (03:49)
[2017-03-07] MEDS ORDERED: IOHEXOL 300MG/ML 150 ML BTL ONE (03:49)
--- NOTE | 2017-03-07 04:36 | RADRPT ---
PROCEDURE: CT ABDOMEN/PELVIS WITH CONTRAST CLINICAL INDICATION: 26-year-old female with abdominal pain. TECHNIQUE: The study was performed utilizing a [employer] 64-slice CT scanner. Direct axia l sections were obtained through the abdomen and pelvis with the use of 100 cc of Omnipaque-300 amty onic intravenous contrast material. Sagittal and coronal reformations were obtained. One or more of the following dose reduction techniques were utilized: automated exposure control, adjustment of the mA and/or kV according to patient's size or use of iterative reconstruction technique. The images were reviewed on a PACS workstation. CTD/vol = 22.9 mGy; Total Exam DLP = 1392.2 mGy-cm. COMPARISON: None. FINDINGS: There is trace left basilar subsegmental atelectasis. There is no evidence for significant pleural effusion. The liver has a normal size and contour without focal areas of abnormal density or contra st enhancement. No intrahepatic nor extrahepatic biliary ductal dilatation is seen. Surgical clips a re present within the gallbladder fossa from prior cholecystectomy. The pancreas is without areas o f abnormal attenuation or contrast enhancement. This spleen is identified and has a normal size wit hout abnormal density or contrast enhancement. The adrenal glands are unremarkable. The kidneys are functional bilaterally with mild prominence of the renal collecting system bilaterally somewhat more prominently on the left side but without evidence for nephroureterolithiasis. There is a duplicate d left renal collecting system. The urinary bladder is distended with urine. The uterus has a thomas gated appearance and is displaced into the left lower quadrant region. There is a hypodense focus within the ventral aspect of the uterus most likely from section. There is a incisional sc ar within the lower ventral pelvic wall. There is mild retained stool within the colon without obst ruction. The appendix is fluid-filled but without edema or surrounding inflammatory reaction. There is trace free fluid within the right lower quadrant. The aortoiliac vessels are without aneurysmal dilatation. The osseous structures are intact. IMPRESSION: 1. Status post cholecystectomy. 2. Prominent renal collecting systems most likely secondary to a distended bladder and compression from the elongated uterus in the left lower quadrant. Noted is a duplicated left renal collecting sy stem. 3. Mild retained stool without obstruction. 4. No CT evidence for appendicitis. 5. Trace right lower quadrant free fluid. .Uvaldo Shaw MD, MD Date Time Electronically viewed and signed by .Uvaldo Shaw MD, MD on 03/07/2017 04:36 ./
[2017-03-07] MEDS ORDERED: CLINDAMYCIN 600 MG/D5W (PMX) 50 ML IVPB SCH (05:00)
[2017-03-07] MEDS ORDERED: CLIN-73 PO (05:05)
[2017-03-07] MEDS ORDERED: IBUP-1542 PO (05:05)
[2017-03-07] MEDS ORDERED: NITR-58 PO (05:05)
[2017-03-07 06:14] VITALS: BP 137/79; PULSE 91; RESP 18; TEMP 98.4
== END 2017-03-07 06:22 | disposition home or self-care (01) ==
LOC: FTE 00:07
DX: O90.89 Other complications of the puerperium, not elsewhere classified (principal); L03.90 Cellulitis, unspecified; O86.22 Infection of bladder following delivery; B96.89 Other specified bacterial agents as the cause of diseases classified elsewhere
CPT/HCPCS: 36415; 74177; 80053; 81001; 83605; 83690; 85025; 87040; 87070; 96374; Q9967; Z7502; Z7610; 81003

== ENCOUNTER 2018-04-19 09:47 | Inpatient (IN) | END 2018-04-22 13:45 | disposition home or self-care (01) | DRG 766 ==